=== PATIENT | male | born 1995 | race African-American/Black ===

== ENCOUNTER 2024-03-29 11:25 | Emergency (ER) | payer SELFPAY ==
[~2024-03-29] VITALS: Ht 175.3 cm; Wt 117.3 kg
[2024-03-29 11:35] VITALS: TEMP 98.5
[2024-03-29 12:47] LABS: PH,URINE DRUG SCREEN 7.5 (5.0-8.0)
[2024-03-29 12:54] LABS: ALCOHOL, URINE DRUG SCREEN NEGATIVE (NEGATIVE); AMPHET/METH SCREEN,URINE NEGATIVE (NEGATIVE); BARBITURATE SCREEN, URINE NEGATIVE (NEGATIVE); BENZODIAZEPINES SCREEN,URINE NEGATIVE (NEGATIVE); CANNABINOID SCREEN,URINE NEGATIVE (NEGATIVE); COCAINE SCREEN,URINE NEGATIVE (NEGATIVE); METHADONE SCREEN, URINE NEGATIVE (NEGATIVE); OPIATE SCREEN,URINE NEGATIVE (NEGATIVE); PHENCYCLIDINE SCREEN,URINE NEGATIVE (NEGATIVE)
[2024-03-29 13:51] VITALS: BP 138/68; PULSE 78; RESP 18; O2SAT 98
== END 2024-03-29 13:55 | disposition home or self-care (01) ==
LOC: EMS 11:25
DX: Z02.1 Encounter for pre-employment examination (principal)
CPT/HCPCS: 80307; 99283